=== PATIENT | female | born 1980 | race Caucasian/White ===

== ENCOUNTER → 2016-12-29 | Outpatient (CLI) | payer BC ==
[~2016-12-29] MED LIST: CEFDINIR300 MG PO; ESTRADIOL2 MG PO; GINSENG1 TAB PO; LEXAPRO 10MG10 MG PO; NORCO 325 MG-51 TAB PO; OMNICEF 300MG300 MG PO; ZOFRAN ODT8 M1 PO
== END ==
LOC: RAD 12:08
DX: R51 Headache (principal); R42 Dizziness and giddiness; R11.2 Nausea with vomiting, unspecified